=== PATIENT | female | born 1980 | race Two or more races ===

== ENCOUNTER 2018-01-19 08:43 | Outpatient (CLI) | payer OTHER ==
[~2018-01-19 08:43] MED LIST: IMODIUM A-D2 MG PO; PEPCID40 MG PO; PHENERGAN25 MG PO
== END 2018-01-19 10:20 | disposition home or self-care (01) ==
LOC: MAMO-SONO 08:43
DX: Z12.31 Encounter for screening mammogram for malignant neoplasm of breast (principal)

== ENCOUNTER 2019-06-24 08:08 | Outpatient (CLI) | payer OTHER | END 2019-06-24 09:25 | disposition home or self-care (01) | LOC: MAMO-SONO 08:08 | DX: Z12.31 Encounter for screening mammogram for malignant neoplasm of breast (principal); Z87.898 Personal history of other specified conditions; Z13.1 Encounter for screening for diabetes mellitus; Z13.29 Encounter for screening for other suspected endocrine disorder ==

== ENCOUNTER 2020-07-10 09:59 | Emergency (ER) | payer OTHER ==
[~2020-07-10] VITALS: Ht 180.3 cm; Wt 116.6 kg
[2020-07-10] MEDS ORDERED: ORPHENADRINE C100 MG PO (16:20)
[2020-07-10] MEDS ORDERED: KETO10TA2 PO (16:20)
== END 2020-07-10 16:46 | disposition home or self-care (01) ==
LOC: ER 09:59
DX: S00.83XA Contusion of other part of head, initial encounter (principal); S00.03XA Contusion of scalp, initial encounter; S50.01XA Contusion of right elbow, initial encounter; M54.2 Cervicalgia; M62.838 Other muscle spasm; R42 Dizziness and giddiness; W01.198A Fall on same level from slipping, tripping and stumbling with subsequent striking against other object, initial encounter; Y93.89 Activity, other specified; Y92.89 Other specified places as the place of occurrence of the external cause; Y99.8 Other external cause status

== ENCOUNTER 2022-10-20 07:07 | Outpatient (CLI) | payer OTHER ==
[~2022-10-20 07:07] MED LIST changes: +KETO10TA2 PO; +ORPHENADRINE C100 MG PO
== END 2022-10-20 07:18 | disposition home or self-care (01) ==
LOC: MAMO-SONO 07:07
PROVIDERS: ATTEND Specialist
DX: Z12.31 Encounter for screening mammogram for malignant neoplasm of breast (principal); N63.0 Unspecified lump in unspecified breast

== ENCOUNTER 2023-08-28 09:23 | Outpatient (CLI) | payer OTHER | END 2023-08-28 09:37 | disposition home or self-care (01) | LOC: RAD 09:23 | PROVIDERS: ATTEND General Practice | DX: R10.10 Upper abdominal pain, unspecified (principal); R10.9 Unspecified abdominal pain; R11.0 Nausea; R05.9 Cough, unspecified; R06.02 Shortness of breath ==

== ENCOUNTER 2023-09-14 07:57 | Outpatient (CLI) | payer OTHER | END 2023-09-14 08:08 | disposition home or self-care (01) | LOC: MRI 07:57 | PROVIDERS: ATTEND General Practice | DX: M25.512 Pain in left shoulder (principal); M54.42 Lumbago with sciatica, left side; E66.9 Obesity, unspecified | CPT/HCPCS: 72148; 73221 ==

== ENCOUNTER 2023-11-10 08:45 | Outpatient (CLI) | payer OTHER | END 2023-11-10 09:15 | disposition home or self-care (01) | LOC: MAMO-SONO 08:45 | PROVIDERS: ATTEND Specialist | DX: Z12.13 Encounter for screening for malignant neoplasm of small intestine (principal); N63.0 Unspecified lump in unspecified breast ==

== ENCOUNTER 2024-08-29 07:35 | Outpatient (CLI) | payer OTHER | END 2024-08-29 07:55 | disposition home or self-care (01) | LOC: SONOGRAMA 07:35 | PROVIDERS: ATTEND General Practice | DX: R10.9 Unspecified abdominal pain (principal); M54.50 Low back pain, unspecified; M51.06 Intervertebral disc disorders with myelopathy, lumbar region; Z11.3 Encounter for screening for infections with a predominantly sexual mode of transmission; Z13.1 Encounter for screening for diabetes mellitus; Z13.89 Encounter for screening for other disorder; Z13.6 Encounter for screening for cardiovascular disorders; Z13.220 Encounter for screening for lipoid disorders; Z13.228 Encounter for screening for other metabolic disorders; Z12.31 Encounter for screening mammogram for malignant neoplasm of breast; Z12.11 Encounter for screening for malignant neoplasm of colon ==

== ENCOUNTER 2024-12-28 13:25 | Outpatient (CLI) | payer OTHER | END 2024-12-28 13:43 | disposition home or self-care (01) | LOC: MAMO-SONO 13:25 | PROVIDERS: ATTEND Specialist | DX: N63.0 Unspecified lump in unspecified breast (principal); Z12.31 Encounter for screening mammogram for malignant neoplasm of breast ==

== ENCOUNTER → 2025-02-16 | Emergency (ER) | payer OTHER ==
[~2025-02-16] VITALS: Ht 177.8 cm; Wt 113.4 kg
[~2025-02-16] MED LIST changes: +ACETAMINOPHEN 500 MG GEL..CAP PO ONE; +ACETAMINOPHEN 500 MG GEL..CAP PO STA; +KETOROLAC TROMETHAMINE 15 MG VIAL IM STA; +KETOROLAC TROMETHAMINE 30 MG VIAL ONE
[2025-02-16 20:18] LABS: HEMATOCRIT 36.3 % (36.0-45.00); HEMOGLOBIN 12.3 g/dL (12.0-15.00); MEAN CELL VOLUME 88.9 fL (80.00-100.00); MEAN CORPUSCULAR HEMOGLOBIN 30.1 pg (27.00-32.0); MEAN CORPUSCULAR HGB CONC 33.9 g/dl (32.0-36.0); PLATELET COUNT 222 K/uL (150-450); RED BLOOD COUNT 4.08 M/uL (4.00-6.00); RED CELL DISTRIBUTION WIDTH 13.6 % (11.5-14.5)
[2025-02-16 20:26] LABS: COVID-19 AG NEGATIVE (NEGATIVE)
[2025-02-16 20:29] LABS: INFLUENZA A AG NEGATIVE (NEGATIVE)
== END | disposition home or self-care (01) ==
LOC: ER 18:14
PROVIDERS: Emergency Medicine
DX: B34.9 Viral infection, unspecified (principal); Z20.822 Contact with and (suspected) exposure to COVID-19

== ENCOUNTER 2025-02-20 16:58 | Emergency (ER) | payer OTHER ==
[~2025-02-20] VITALS: Ht 177.8 cm; Wt 68.0 kg
[~2025-02-20 16:58] MED LIST changes: -ACETAMINOPHEN 500 MG GEL..CAP PO ONE; -ACETAMINOPHEN 500 MG GEL..CAP PO STA; -KETOROLAC TROMETHAMINE 15 MG VIAL IM STA; -KETOROLAC TROMETHAMINE 30 MG VIAL ONE
[2025-02-20] MEDS ORDERED: ACETAMINOPHEN 500 MG GEL..CAP PO ONE ×2 (19:00→19:03)
[2025-02-20 19:27] LABS: PH,URINE 5.5 (5.0-8.0); URINE APPEARANCE Clear; URINE BILIRRUBIN Negative (NEGATIVE); URINE BLOOD Negative; URINE COLOR Yellow; URINE GLUCOSE Negative (NEGATIVE); URINE KETONE Trace (NEGATIVE); URINE LEUKOCYTE Negative; URINE NITRATE Negative; URINE PROTEIN Negative (NEGATIVE)
[2025-02-20 19:30] LABS: URINE BACTERIA 373.2 uL (0.0-1933); URINE RBC 18.7 uL (0.0-20.8); URINE WBC 9.9 uL (0.0-23.2)
[2025-02-20 19:32] LABS: HEMATOCRIT 34.5 % (36.0-45.00); HEMOGLOBIN 11.8 g/dL (12.0-15.00); MEAN CELL VOLUME 90.1 fL (80.00-100.00); MEAN CORPUSCULAR HEMOGLOBIN 30.9 pg (27.00-32.0); MEAN CORPUSCULAR HGB CONC 34.3 g/dl (32.0-36.0); PLATELET COUNT 292 K/uL (150-450); RED BLOOD COUNT 3.82 M/uL (4.00-6.00); RED CELL DISTRIBUTION WIDTH 13.5 % (11.5-14.5)
[2025-02-20 19:45] LABS: URINE CAST 0.14 uL (0.0-1.40)
[2025-02-20] MEDS ORDERED: KETOROLAC TROMETHAMINE 30 MG VIAL IM ONE (22:45)
[2025-02-20] MEDS ORDERED: KETOROLAC TROMETHAMINE 30 MG VIAL ONE (22:48)
== END 2025-02-20 22:54 | disposition home or self-care (01) ==
LOC: ER 17:00
PROVIDERS: General Practice
DX: R51.9 Headache, unspecified (principal); R53.81 Other malaise